=== PATIENT | female | born 1950 | race Caucasian/White ===

== ENCOUNTER 2017-05-25 15:54 | Inpatient (IN) | payer OTHER ==
[~2017-05-25] VITALS: Ht 172.7 cm; Wt 86.5 kg
[~2017-05-25 15:54] MED LIST: ATORVASTATIN CA20 MG PO; CORICIDIN HBP1 EAC5 PO; EVISTA60 MG PO; LOSARTAN POTAS100 MG PO; LOSARTAN-HCTZ1 EAC2 PO; MELOXICAM15 MG PO; MULTIVITAMIN1 EAC2 PO; TRAMADOL HCL50 MG PO; VOLTAREN75 MG PO
[2017-05-25 17:03] LABS: EOSINOPHIL (%) 0.5 % (0-5); IMMATURE GRANULOCYTE (%) 0.5 % (0.0-0.7); INSTRUMENT ABS NEUTROPHIL CT 6.3 K/uL; INTER. NORMALIZED RATIO 1.1; MCH 28.7 PG (29.0-34.0); MCHC 32.7 G/DL (30.0-36.0); MCV 87.8 FL (83-99); MONOCYTE (%) 8.8 % (3-12); MONOCYTE COUNT 0.7 K/uL (0-0.8); NEUTROPHIL (%) 77.1 % (45-76); NEUTROPHIL COUNT 6.3 K/uL (1.8-6.4); RBC DIS.WIDTH-CV 13.1 % (11.8-14.6); RED BLOOD COUNT 3.76 M/uL (3.80-5.20); WHITE BLOOD COUNT 8.1 K/uL (4.1-10.2)
[2017-05-25 17:04] LABS: CHLORIDE 112 mEq/L (99-109); POTASSIUM 3.7 mEq/L (3.7-5.4); SODIUM 144 mEq/L (136-147)
[2017-05-25 17:06] LABS: GLUCOSE 102 mg/dL (70-99)
[2017-05-25 17:07] LABS: ANION GAP 9 MEQ/L (2-14)
[2017-05-25 17:10] LABS: GFR ESTIMATE (CALCULATED) > 59 mL/min/; UREA NITROGEN (BUN) 17 mg/dL (9-23)
[2017-05-25 17:37] LABS: PTT 19.3 SEC (25-37)
[2017-05-25 17:45] LABS: PLAT.SUFFICIENCY ADEQUATE; PLATELET COUNT UNABLE TO REPORT K/uL (156-360)
[2017-05-25 17:48] LABS: HDL CHOLESTEROL 57 MG/DL (Desirable>=50); LDL CHOLESTEROL 78 mg/dL (Desirable<100); NON-HDL CHOLESTEROL 93 mg/dL (Desirable<160); TOTAL CHOLESTEROL 150 mg/dL (Desirable<200); TRIGLYCERIDES 76 MG/DL (Normal: <150)
[2017-05-25 19:28] LABS: Estimated Average Glucose 114 mg/dL (70-123); HEMOGLOBIN A1c (GLYCOHEMOGLOB) 5.6 % HGB (Below 5.7)
[2017-05-25 22:18] LABS: DIRECT BILIRUBIN 0.1 mg/dL (0.0-0.3); TOTAL BILIRUBIN 0.7 MG/DL (0.0-1.0)
[2017-05-25 22:36] LABS: ALKALINE PHOSPHATASE 68 IU/L (3-129)
[2017-05-25 22:43] VITALS: BP 168/82
[2017-05-26 04:14] VITALS: BP 144/82
[2017-05-26 06:11] LABS: HEMATOCRIT 34.2 % (36.0-46.0); MCH 28.8 PG (29.0-34.0); MEAN PLAT.VOLUME 11.2 uM^3 (9.5-12.4); PLATELET COUNT 230 K/uL (156-360); RBC DIS.WIDTH-CV 13.1 % (11.8-14.6); RBC DIS.WIDTH-SD 41.1 % (39-53); RED BLOOD COUNT 3.93 M/uL (3.80-5.20)
[2017-05-26 06:58] LABS: ANION GAP 8 MEQ/L (2-14); CHLORIDE 109 MEQ/L (99-109); GFR ESTIMATE (CALCULATED) > 59 mL/min/; GLUCOSE 127 mg/dL (70-99); POTASSIUM 4.1 MEQ/L (3.7-5.4); SAMPLE HEMOLYSIS CHECK 0; SAMPLE ICTERIC CHECK 0; SAMPLE LIPEMIA CHECK 0; SODIUM 142 MEQ/L (136-147); UREA NITROGEN (BUN) 15 mg/dL (9-23)
[2017-05-26 08:14] VITALS: BP 144/72
[2017-05-26 11:51] VITALS: BP 135/73
[2017-05-26 16:48] VITALS: BP 131/69
[2017-05-26 20:30] VITALS: BP 140/70
[2017-05-26 23:52] VITALS: BP 151/75
[2017-05-27 04:16] VITALS: BP 136/67
[2017-05-27 07:01] LABS: HEMATOCRIT 35.7 % (36.0-46.0); MCH 29.1 PG (29.0-34.0); MCHC 33.3 G/DL (30.0-36.0); MCV 87.3 FL (83-99); MEAN PLAT.VOLUME 10.9 uM^3 (9.5-12.4); PLATELET COUNT 235 K/uL (156-360); RBC DIS.WIDTH-CV 13.2 % (11.8-14.6); RBC DIS.WIDTH-SD 41.8 % (39-53); RED BLOOD COUNT 4.09 M/uL (3.80-5.20); WHITE BLOOD COUNT 10.3 K/uL (4.1-10.2)
[2017-05-27 07:35] LABS: ANION GAP 10 MEQ/L (2-14); CHLORIDE 104 MEQ/L (99-109); GFR ESTIMATE (CALCULATED) > 59 mL/min/; GLUCOSE 121 mg/dL (70-99); SAMPLE HEMOLYSIS CHECK 0; SAMPLE ICTERIC CHECK 0; SAMPLE LIPEMIA CHECK 0; SODIUM 139 MEQ/L (136-147); UREA NITROGEN (BUN) 22 mg/dL (9-23)
[2017-05-27 07:36] VITALS: BP 139/69
[2017-05-27 11:07] VITALS: BP 126/60
[2017-05-27 15:34] VITALS: BP 128/64
[2017-05-27 19:54] VITALS: BP 167/68
[2017-05-27 23:27] VITALS: BP 115/56
[2017-05-28 04:00] VITALS: BP 128/68
[2017-05-28 08:16] VITALS: BP 139/68
[2017-05-28 12:16] VITALS: BP 142/73
[2017-05-28 15:36] VITALS: BP 147/77
[2017-05-28 19:54] VITALS: BP 132/78; BP 174/79
[2017-05-28 23:23] VITALS: BP 148/69
[2017-05-29 04:00] VITALS: BP 132/78
[2017-05-29 08:01] VITALS: BP 144/67
[2017-05-29 12:10] VITALS: BP 143/68
[2017-05-29 16:35] VITALS: BP 181/79
[2017-05-29 19:33] VITALS: BP 147/83
[2017-05-29 23:19] VITALS: BP 138/77
[2017-05-30 23:25] VITALS: BP 142/64
[2017-05-31 08:08] VITALS: BP 107/66
[2017-05-31 15:42] VITALS: BP 128/78
[2017-05-31 23:24] VITALS: BP 147/72
[2017-06-01 08:21] VITALS: BP 162/79
[2017-06-01 15:24] VITALS: BP 137/62
[2017-06-01 20:11] VITALS: BP 134/69
[2017-06-02 00:08] VITALS: BP 140/65
[2017-06-02 06:15] LABS: EOSINOPHIL (%) 0 % (0-5); HEMATOCRIT 38.5 % (36.0-46.0); IMMATURE GRANULOCYTE (%) 1.8 % (0.0-0.7); IMMATURE GRANULOCYTE COUNT 0.2 K/uL; INSTRUMENT ABS NEUTROPHIL CT 9.1 K/uL; LYMPHOCYTE COUNT 1.1 K/uL (1.0-2.8); MCH 29.1 PG (29.0-34.0); MCHC 33.5 G/DL (30.0-36.0); MCV 86.7 FL (83-99); MEAN PLAT.VOLUME 10.8 uM^3 (9.5-12.4); MONOCYTE (%) 5.5 % (3-12); MONOCYTE COUNT 0.6 K/uL (0-0.8); NEUTROPHIL (%) 82.4 % (45-76); NEUTROPHIL COUNT 9.1 K/uL (1.8-6.4); PLATELET COUNT 178 K/uL (156-360); RBC DIS.WIDTH-CV 13.3 % (11.8-14.6); RBC DIS.WIDTH-SD 41.9 % (39-53); RED BLOOD COUNT 4.44 M/uL (3.80-5.20)
[2017-06-02 06:33] LABS: ANION GAP 8 MEQ/L (2-14); CHLORIDE 105 MEQ/L (99-109); GFR ESTIMATE (CALCULATED) > 59 mL/min/; GLUCOSE 109 mg/dL (70-99); POTASSIUM 4.4 MEQ/L (3.7-5.4); SAMPLE HEMOLYSIS CHECK 1; SAMPLE ICTERIC CHECK 0; SAMPLE LIPEMIA CHECK 0; SODIUM 140 MEQ/L (136-147); UREA NITROGEN (BUN) 25 mg/dL (9-23)
[2017-06-02 08:36] VITALS: BP 123/63
[2017-06-02 16:07] VITALS: BP 127/81
[2017-06-03 00:39] VITALS: BP 124/66
[2017-06-03 06:45] LABS: EOSINOPHIL (%) 0 % (0-5); HEMATOCRIT 38.6 % (36.0-46.0); IMMATURE GRANULOCYTE (%) 2.1 % (0.0-0.7); IMMATURE GRANULOCYTE COUNT 0.2 K/uL; INSTRUMENT ABS NEUTROPHIL CT 9.2 K/uL; LYMPHOCYTE COUNT 1.2 K/uL (1.0-2.8); MCH 28.5 PG (29.0-34.0); MCHC 32.9 G/DL (30.0-36.0); MCV 86.5 FL (83-99); MEAN PLAT.VOLUME 10.9 uM^3 (9.5-12.4); MONOCYTE (%) 6.3 % (3-12); MONOCYTE COUNT 0.7 K/uL (0-0.8); NEUTROPHIL (%) 80.8 % (45-76); NEUTROPHIL COUNT 9.2 K/uL (1.8-6.4); PLATELET COUNT 170 K/uL (156-360); RBC DIS.WIDTH-CV 13.2 % (11.8-14.6); RBC DIS.WIDTH-SD 41.6 % (39-53); RED BLOOD COUNT 4.46 M/uL (3.80-5.20); WHITE BLOOD COUNT 11.4 K/uL (4.1-10.2)
[2017-06-03 07:05] LABS: ANION GAP 8 MEQ/L (2-14); CHLORIDE 104 MEQ/L (99-109); GFR ESTIMATE (CALCULATED) > 59 mL/min/; GLUCOSE 101 mg/dL (70-99); POTASSIUM 4.5 MEQ/L (3.7-5.4); SAMPLE HEMOLYSIS CHECK 0; SAMPLE ICTERIC CHECK 0; SAMPLE LIPEMIA CHECK 0; SODIUM 139 MEQ/L (136-147); UREA NITROGEN (BUN) 24 mg/dL (9-23)
[2017-06-03 07:42] VITALS: BP 148/67
[2017-06-03 16:03] VITALS: BP 129/78
[2017-06-03 23:39] VITALS: BP 130/72
[2017-06-04 08:00] VITALS: BP 121/70; BP 121/73
[2017-06-04 14:58] VITALS: BP 109/62
[2017-06-04 23:22] VITALS: BP 134/72
[2017-06-05 04:37] VITALS: BP 133/79
[2017-06-05 07:02] LABS: EOSINOPHIL (%) 0 % (0-5); HEMATOCRIT 37.9 % (36.0-46.0); IMMATURE GRANULOCYTE (%) 2.8 % (0.0-0.7); IMMATURE GRANULOCYTE COUNT 0.3 K/uL; INSTRUMENT ABS NEUTROPHIL CT 8.9 K/uL; LYMPHOCYTE COUNT 1.2 K/uL (1.0-2.8); MCH 28.5 PG (29.0-34.0); MCHC 32.7 G/DL (30.0-36.0); MCV 87.1 FL (83-99); MEAN PLAT.VOLUME 11.1 uM^3 (9.5-12.4); MONOCYTE (%) 6.9 % (3-12); MONOCYTE COUNT 0.8 K/uL (0-0.8); NEUTROPHIL (%) 79.6 % (45-76); NEUTROPHIL COUNT 8.9 K/uL (1.8-6.4); PLATELET COUNT 145 K/uL (156-360); RBC DIS.WIDTH-CV 13.2 % (11.8-14.6); RBC DIS.WIDTH-SD 42.2 % (39-53); RED BLOOD COUNT 4.35 M/uL (3.80-5.20); WHITE BLOOD COUNT 11.2 K/uL (4.1-10.2)
[2017-06-05 07:23] VITALS: BP 126/61
[2017-06-05 07:26] LABS: ANION GAP 7 MEQ/L (2-14); CHLORIDE 106 MEQ/L (99-109); GFR ESTIMATE (CALCULATED) > 59 mL/min/; GLUCOSE 101 mg/dL (70-99); POTASSIUM 4.3 MEQ/L (3.7-5.4); SAMPLE HEMOLYSIS CHECK 0; SAMPLE ICTERIC CHECK 0; SAMPLE LIPEMIA CHECK 0; SODIUM 140 MEQ/L (136-147); UREA NITROGEN (BUN) 28 mg/dL (9-23)
[2017-06-05 15:20] VITALS: BP 108/66
[2017-06-06 00:13] VITALS: BP 105/56
[2017-06-06 06:02] LABS: EOSINOPHIL (%) 0.1 % (0-5); HEMATOCRIT 37.4 % (36.0-46.0); IMMATURE GRANULOCYTE COUNT 0.4 K/uL; INSTRUMENT ABS NEUTROPHIL CT 9.9 K/uL; LYMPHOCYTE COUNT 1.2 K/uL (1.0-2.8); MCH 29.3 PG (29.0-34.0); MCHC 32.9 G/DL (30.0-36.0); MONOCYTE (%) 6.8 % (3-12); MONOCYTE COUNT 0.8 K/uL (0-0.8); NEUTROPHIL (%) 80.2 % (45-76); NEUTROPHIL COUNT 9.9 K/uL (1.8-6.4); PLATELET COUNT 108 K/uL (156-360); RBC DIS.WIDTH-CV 13.6 % (11.8-14.6); RBC DIS.WIDTH-SD 44.1 % (39-53); WHITE BLOOD COUNT 12.3 K/uL (4.1-10.2)
[2017-06-06 06:29] LABS: ANION GAP 7 MEQ/L (2-14); CHLORIDE 105 MEQ/L (99-109); GFR ESTIMATE (CALCULATED) > 59 mL/min/; GLUCOSE 111 mg/dL (70-99); POTASSIUM 4.9 MEQ/L (3.7-5.4); SAMPLE HEMOLYSIS CHECK 2; SAMPLE ICTERIC CHECK 0; SAMPLE LIPEMIA CHECK 0; SODIUM 138 MEQ/L (136-147); UREA NITROGEN (BUN) 28 mg/dL (9-23)
[2017-06-06 08:14] VITALS: BP 131/63
[2017-06-06] MEDS ORDERED: GABAPENTIN100 MG PO (14:05)
[2017-06-06] MEDS ORDERED: ATORVASTATIN CA20 MG PO (14:05)
[2017-06-06] MEDS ORDERED: PANTOPRAZOLE SO40 MG PO (14:06)
[2017-06-06] MEDS ORDERED: DEXAMETHASONE4 MG PO (14:07)
[2017-06-06] MEDS ORDERED: ALPRAZOLAM0.25 M2 PO (14:09)
[2017-06-06] MEDS ORDERED: TRAMADOL HCL50 MG PO (14:09)
== END 2017-06-06 15:40 | DRG 987 ==
LOC: EME 15:54 → 3EAST 21:04 → EDOF 21:04 → ENRESERV 21:11 → 3EAST 22:15
PROVIDERS: Emergency Medicine; Hospitalist; Internal Medicine
PROC: D0Y07ZZ Contact Radiation of Brain (ICD-10-PCS; principal; 2017-05-29)
PROC: 0PB23ZX Excision of 3 or More Ribs, Percutaneous Approach, Diagnostic (ICD-10-PCS; 2017-05-29)
DX: C79.31 Secondary malignant neoplasm of brain (principal); C79.51 Secondary malignant neoplasm of bone; C78.01 Secondary malignant neoplasm of right lung; C80.1 Malignant (primary) neoplasm, unspecified; G93.6 Cerebral edema; R47.01 Aphasia; R41.82 Altered mental status, unspecified; R59.1 Generalized enlarged lymph nodes; D64.9 Anemia, unspecified; I10 Essential (primary) hypertension; E78.5 Hyperlipidemia, unspecified; K21.9 Gastro-esophageal reflux disease without esophagitis; Z87.891 Personal history of nicotine dependence; Z91.81 History of falling; Z23 Encounter for immunization
CPT/HCPCS: 70450; 70553; 71020; 71260; 74177; 77012; 77290; 77307; 77331; 77334; 77412; 77417; 80048; 80061; 80076; 83036; 84443; 84484; 85025; 85027; 85610; 85730; 88305; 88341 TC; 88342 TC; 90686; 93005; 93306; 93880; 94799; 97530 GP; 99281; 99284; G0378; J1100; J1170; J1644; J1650; J2060; J2270; J3010; J3480; J7030; J8540

== ENCOUNTER → 2017-06-27 | Outpatient (CLI) | payer OTHER ==
[~2017-06-27] MED LIST changes: +ALPRAZOLAM0.25 M2 PO; +DEXAMETHASONE4 MG PO; +GABAPENTIN100 MG PO; +PANTOPRAZOLE SO40 MG PO
[2017-06-27 11:06] LABS: PROTHROMBIN TIME 11.4 SEC (10.2-12.9)
[2017-06-27 11:09] LABS: PTT 23.1 SEC (25-37)
== END | disposition home or self-care (01) ==
LOC: OPR 09:55 → EDSTATUS 10:00
PROVIDERS: Internal Medicine Hematology & Oncology
PROC: 07BP3ZX Excision of Spleen, Percutaneous Approach, Diagnostic (ICD-10-PCS; principal; 2017-06-27)
DX: C78.89 Secondary malignant neoplasm of other digestive organs (principal); C79.31 Secondary malignant neoplasm of brain; C79.51 Secondary malignant neoplasm of bone; R91.1 Solitary pulmonary nodule; R91.8 Other nonspecific abnormal finding of lung field; Z80.3 Family history of malignant neoplasm of breast; Z87.891 Personal history of nicotine dependence; I10 Essential (primary) hypertension; E78.5 Hyperlipidemia, unspecified
CPT/HCPCS: 77012; 85610; 85730; 88307; 88341 TC; 88342 TC; J3010

== ENCOUNTER 2017-07-19 09:36 | Emergency (ER) | payer OTHER ==
[~2017-07-19] VITALS: Ht 172.7 cm; Wt 80.6 kg
[2017-07-19 11:23] LABS: HEMATOCRIT 31.3 % (36.0-46.0); HEMOGLOBIN 10.5 G/DL (11.9-15.5); MCH 29.1 PG (29.0-34.0); MCHC 33.5 G/DL (30.0-36.0); MCV 86.7 FL (83-99); PLATELET COUNT 235 K/uL (156-360); RBC DIS.WIDTH-CV 13.9 % (11.8-14.6); RED BLOOD COUNT 3.61 M/uL (3.80-5.20); WHITE BLOOD COUNT 6.5 K/uL (4.1-10.2)
[2017-07-19 11:33] LABS: CHLORIDE 103 mEq/L (99-109); POTASSIUM 3.3 mEq/L (3.7-5.4); SODIUM 140 mEq/L (136-147)
[2017-07-19 11:35] LABS: GLUCOSE 96 mg/dL (70-99)
[2017-07-19 11:39] LABS: GFR ESTIMATE (CALCULATED) 59 mL/min/
[2017-07-19 11:40] LABS: UREA NITROGEN (BUN) 12 mg/dL (9-23)
[2017-07-19 12:16] LABS: APPEARANCE CLEAR ((CLEAR)); BILIRUBIN NEGATIVE; BLOOD SMALL; COLOR YELLOW ((YELLOW)); GLUCOSE (STRIP) NEGATIVE; KETONES 20; LEUKOCYTES NEGATIVE; NITRITE POSITIVE; PROTEIN (STRIP) NEGATIVE; SPECIFIC GRAVITY 1.009 (1.000-1.030)
[2017-07-19 12:26] LABS: BACTERIA RARE /HPF; EPITHELIAL CELLS 1+ /HPF; MUCUS TRACE /LPF; RED BLOOD CELLS 0-5 /HPF (0-5); WHITE BLOOD CELLS 0-5 /HPF (0-5)
[2017-07-19] MEDS ORDERED: PHENERGAN25 MG PR (13:14)
[2017-07-19] MEDS ORDERED: PROMETHAZINE HC25 M1 PO (14:05)
[2017-07-19 14:15] VITALS: BP 145/68
[2017-07-20] MEDS ORDERED: PROMETHAZINE HC25 M1 PO (21:46)
== END 2017-07-19 14:21 | disposition home or self-care (01) ==
LOC: EME 09:36
PROVIDERS: Physician Assistant
DX: B34.9 Viral infection, unspecified (principal); R11.2 Nausea with vomiting, unspecified; S29.011A Strain of muscle and tendon of front wall of thorax, initial encounter; E78.5 Hyperlipidemia, unspecified; I10 Essential (primary) hypertension; Z87.891 Personal history of nicotine dependence; Z92.3 Personal history of irradiation; Z85.841 Personal history of malignant neoplasm of brain; Z88.5 Allergy status to narcotic agent
CPT/HCPCS: 71046; 80048; 81003; 85027; 87077; 87086; 87186; 99281; 99285; J2405; J7030

== ENCOUNTER 2017-07-20 19:02 | Inpatient (IN) | payer OTHER ==
[~2017-07-20] VITALS: Ht 172.7 cm; Wt 80.4 kg
[~2017-07-20 19:02] MED LIST changes: +PHENERGAN25 MG PR; +PROMETHAZINE HC25 M1 PO
[2017-07-20 20:07] LABS: BASOPHIL (%) 0.7 % (0-1); BASOPHIL COUNT 0.1 K/uL (0-0.1); EOSINOPHIL (%) 1.1 % (0-5); EOSINOPHIL COUNT 0.1 K/uL (0-0.3); HEMATOCRIT 32.8 % (36.0-46.0); HEMOGLOBIN 10.8 G/DL (11.9-15.5); IMMATURE GRANULOCYTE (%) 1.7 % (0.0-0.7); LYMPHOCYTE (%) 11.5 % (15-42); LYMPHOCYTE COUNT 0.9 K/uL (1.0-2.8); MCH 28.9 PG (29.0-34.0); MCHC 32.9 G/DL (30.0-36.0); MCV 87.7 FL (83-99); MONOCYTE (%) 10.5 % (3-12); MONOCYTE COUNT 0.9 K/uL (0-0.8); NEUTROPHIL (%) 74.5 % (45-76); NEUTROPHIL COUNT 6.1 K/uL (1.8-6.4); PLATELET COUNT 220 K/uL (156-360); RBC DIS.WIDTH-CV 14.3 % (11.8-14.6); RBC DIS.WIDTH-SD 45.9 % (39-53); RED BLOOD COUNT 3.74 M/uL (3.80-5.20); WHITE BLOOD COUNT 8.2 K/uL (4.1-10.2)
[2017-07-20 20:24] LABS: CHLORIDE 104 mEq/L (99-109); POTASSIUM 3.6 mEq/L (3.7-5.4); SODIUM 138 mEq/L (136-147)
[2017-07-20 20:25] LABS: GLUCOSE 108 mg/dL (70-99)
[2017-07-20 20:29] LABS: CREATININE 1.2 mg/dL (0.6-1.3); GFR ESTIMATE (CALCULATED) 47 mL/min/
[2017-07-20 20:30] LABS: UREA NITROGEN (BUN) 14 mg/dL (9-23)
[2017-07-20] MEDS ORDERED: PROMETHAZINE HC25 M1 PO (21:46)
[2017-07-21 01:06] VITALS: BP 133/61
[2017-07-21 05:20] LABS: HEMATOCRIT 29.1 % (36.0-46.0); HEMOGLOBIN 9.5 G/DL (11.9-15.5); MCHC 32.6 G/DL (30.0-36.0); MCV 88.7 FL (83-99); PLATELET COUNT 217 K/uL (156-360); RBC DIS.WIDTH-CV 14.3 % (11.8-14.6); RED BLOOD COUNT 3.28 M/uL (3.80-5.20); WHITE BLOOD COUNT 6.3 K/uL (4.1-10.2)
[2017-07-21 05:43] LABS: CHLORIDE 109 MEQ/L (99-109); GFR ESTIMATE (CALCULATED) 59 mL/min/; GLUCOSE 92 mg/dL (70-99); POTASSIUM 3.3 MEQ/L (3.7-5.4); SODIUM 141 MEQ/L (136-147); UREA NITROGEN (BUN) 11 mg/dL (9-23)
[2017-07-21 07:46] VITALS: BP 153/65
[2017-07-21 11:39] VITALS: BP 126/60
[2017-07-21 15:29] VITALS: BP 154/84
[2017-07-21 20:21] VITALS: BP 136/68
[2017-07-22 00:13] VITALS: BP 147/88
[2017-07-22 04:02] VITALS: BP 145/80
[2017-07-22 06:10] LABS: HEMATOCRIT 30.8 % (36.0-46.0); HEMOGLOBIN 9.9 G/DL (11.9-15.5); RED BLOOD COUNT 3.44 M/uL (3.80-5.20); WHITE BLOOD COUNT 8.5 K/uL (4.1-10.2)
[2017-07-22 06:11] LABS: BASOPHIL (%) 0.7 % (0-1); BASOPHIL COUNT 0.1 K/uL (0-0.1); EOSINOPHIL (%) 1.1 % (0-5); EOSINOPHIL COUNT 0.1 K/uL (0-0.3); IMMATURE GRANULOCYTE (%) 1.1 % (0.0-0.7); LYMPHOCYTE (%) 7.5 % (15-42); LYMPHOCYTE COUNT 0.6 K/uL (1.0-2.8); MCH 28.8 PG (29.0-34.0); MCHC 32.1 G/DL (30.0-36.0); MCV 89.5 FL (83-99); MONOCYTE (%) 9.2 % (3-12); MONOCYTE COUNT 0.8 K/uL (0-0.8); NEUTROPHIL (%) 80.4 % (45-76); NEUTROPHIL COUNT 6.8 K/uL (1.8-6.4); PLATELET COUNT 235 K/uL (156-360); RBC DIS.WIDTH-CV 14.4 % (11.8-14.6)
[2017-07-22 06:42] LABS: CHLORIDE 109 MEQ/L (99-109); GLUCOSE 96 mg/dL (70-99); SODIUM 143 MEQ/L (136-147); UREA NITROGEN (BUN) 11 mg/dL (9-23)
[2017-07-22 06:48] LABS: CREATININE 1.6 MG/DL (0.6-1.3); GFR ESTIMATE (CALCULATED) 34 mL/min/; POTASSIUM 4.1 MEQ/L (3.7-5.4)
[2017-07-22 08:00] VITALS: BP 145/73
[2017-07-22 11:19] VITALS: BP 151/73
[2017-07-23 00:20] VITALS: BP 136/79
[2017-07-23 06:59] LABS: HEMATOCRIT 27.8 % (36.0-46.0); HEMOGLOBIN 8.8 G/DL (11.9-15.5); MCH 29.2 PG (29.0-34.0); MCHC 31.7 G/DL (30.0-36.0); MCV 92.4 FL (83-99); PLATELET COUNT 220 K/uL (156-360); RBC DIS.WIDTH-CV 14.6 % (11.8-14.6); RBC DIS.WIDTH-SD 48.8 % (39-53); RED BLOOD COUNT 3.01 M/uL (3.80-5.20); WHITE BLOOD COUNT 6.1 K/uL (4.1-10.2)
[2017-07-23 07:06] LABS: BASOPHIL (%) 0.8 % (0-1); BASOPHIL COUNT 0.1 K/uL (0-0.1); EOSINOPHIL (%) 2.1 % (0-5); EOSINOPHIL COUNT 0.1 K/uL (0-0.3); IMMATURE GRANULOCYTE (%) 1.1 % (0.0-0.7); LYMPHOCYTE (%) 10.7 % (15-42); LYMPHOCYTE COUNT 0.7 K/uL (1.0-2.8); MONOCYTE COUNT 0.6 K/uL (0-0.8); NEUTROPHIL (%) 75.3 % (45-76); NEUTROPHIL COUNT 4.6 K/uL (1.8-6.4)
[2017-07-23 07:35] VITALS: BP 149/87
[2017-07-23 09:59] LABS: CHLORIDE 112 MEQ/L (99-109); GFR ESTIMATE (CALCULATED) 26 mL/min/; GLUCOSE 86 mg/dL (70-99); POTASSIUM 3.7 MEQ/L (3.7-5.4); SODIUM 144 MEQ/L (136-147); UREA NITROGEN (BUN) 13 mg/dL (9-23)
[2017-07-23 21:51] LABS: UR CREATININE CONCENTRATION 131.6 MG/DL
[2017-07-23 23:29] VITALS: BP 140/75
[2017-07-24 08:01] LABS: BASOPHIL (%) 0.7 % (0-1); BASOPHIL COUNT 0.1 K/uL (0-0.1); EOSINOPHIL (%) 2.9 % (0-5); EOSINOPHIL COUNT 0.2 K/uL (0-0.3); HEMOGLOBIN 9.7 G/DL (11.9-15.5); IMMATURE GRANULOCYTE (%) 1.1 % (0.0-0.7); LYMPHOCYTE COUNT 1.1 K/uL (1.0-2.8); MCH 28.2 PG (29.0-34.0); MCHC 31.3 G/DL (30.0-36.0); MCV 90.1 FL (83-99); MONOCYTE (%) 9.8 % (3-12); MONOCYTE COUNT 0.8 K/uL (0-0.8); NEUTROPHIL (%) 72.5 % (45-76); NEUTROPHIL COUNT 5.9 K/uL (1.8-6.4); PLATELET COUNT 219 K/uL (156-360); RBC DIS.WIDTH-CV 14.5 % (11.8-14.6); RBC DIS.WIDTH-SD 47.8 % (39-53); RED BLOOD COUNT 3.44 M/uL (3.80-5.20); WHITE BLOOD COUNT 8.2 K/uL (4.1-10.2)
[2017-07-24 08:15] VITALS: BP 158/85
[2017-07-24 08:34] LABS: ALBUMIN 2.9 G/DL (3.2-4.8); CHLORIDE 115 MEQ/L (99-109); SODIUM 142 MEQ/L (136-147)
[2017-07-24 08:40] LABS: CREATININE 1.9 MG/DL (0.6-1.3); GFR ESTIMATE (CALCULATED) 28 mL/min/; GLUCOSE 95 mg/dL (70-99); PHOSPHORUS 3.4 mg/dL (2.5-4.9); UREA NITROGEN (BUN) 14 mg/dL (9-23); URIC ACID 3.5 mg/dL (3.1-9.2)
[2017-07-24 10:07] LABS: TROP-I INTERPRETATION NEGATIVE; TROPONIN-I 0.01 ng/mL (0.0-0.30)
[2017-07-24 15:25] VITALS: BP 131/83
[2017-07-24 23:59] VITALS: BP 140/69
[2017-07-25 07:34] VITALS: BP 138/72
[2017-07-25 08:49] LABS: BASOPHIL (%) 0.6 % (0-1); BASOPHIL COUNT 0.1 K/uL (0-0.1); EOSINOPHIL (%) 2.6 % (0-5); EOSINOPHIL COUNT 0.2 K/uL (0-0.3); HEMATOCRIT 29.9 % (36.0-46.0); HEMOGLOBIN 9.5 G/DL (11.9-15.5); IMMATURE GRANULOCYTE (%) 1.5 % (0.0-0.7); LYMPHOCYTE (%) 7.2 % (15-42); LYMPHOCYTE COUNT 0.6 K/uL (1.0-2.8); MCH 28.1 PG (29.0-34.0); MCHC 31.8 G/DL (30.0-36.0); MCV 88.5 FL (83-99); MONOCYTE (%) 3.6 % (3-12); MONOCYTE COUNT 0.3 K/uL (0-0.8); NEUTROPHIL (%) 84.5 % (45-76); NEUTROPHIL COUNT 7.5 K/uL (1.8-6.4); PLATELET COUNT 258 K/uL (156-360); RBC DIS.WIDTH-CV 14.3 % (11.8-14.6); RBC DIS.WIDTH-SD 45.6 % (39-53); RED BLOOD COUNT 3.38 M/uL (3.80-5.20); WHITE BLOOD COUNT 8.9 K/uL (4.1-10.2)
[2017-07-25 09:00] LABS: INTER. NORMALIZED RATIO 1.3
[2017-07-25 09:03] LABS: PTT 67.7 SEC (25-37)
[2017-07-25 09:13] LABS: ALBUMIN 3.3 g/dL (3.2-4.8)
[2017-07-25 09:14] LABS: CHLORIDE 117 mEq/L (99-109); POTASSIUM 4.2 mEq/L (3.7-5.4); SODIUM 142 mEq/L (136-147)
[2017-07-25 09:15] LABS: GLUCOSE 116 mg/dL (70-99)
[2017-07-25 09:19] LABS: CREATININE 1.8 mg/dL (0.6-1.3); GFR ESTIMATE (CALCULATED) 30 mL/min/
[2017-07-25 09:20] LABS: UREA NITROGEN (BUN) 13 mg/dL (9-23)
[2017-07-25 10:14] LABS: PHOSPHORUS 2.8 mg/dL (2.5-4.9)
[2017-07-25 16:07] VITALS: BP 129/67
[2017-07-25 19:22] VITALS: BP 156/71
[2017-07-26 04:00] VITALS: BP 156/75
[2017-07-26 06:58] VITALS: BP 114/73
[2017-07-26 11:27] VITALS: BP 144/80
[2017-07-26 13:06] LABS: BASOPHIL (%) 0.2 % (0-1); EOSINOPHIL (%) 0 % (0-5); HEMATOCRIT 28.2 % (36.0-46.0); IMMATURE GRANULOCYTE (%) 4.8 % (0.0-0.7); LYMPHOCYTE (%) 5.4 % (15-42); LYMPHOCYTE COUNT 0.5 K/uL (1.0-2.8); MCH 28.1 PG (29.0-34.0); MCHC 31.9 G/DL (30.0-36.0); MCV 88.1 FL (83-99); MONOCYTE COUNT 0.4 K/uL (0-0.8); NEUTROPHIL (%) 85.6 % (45-76); NEUTROPHIL COUNT 8.5 K/uL (1.8-6.4); PLATELET COUNT 278 K/uL (156-360); RBC DIS.WIDTH-CV 14.6 % (11.8-14.6); RBC DIS.WIDTH-SD 46.5 % (39-53); WHITE BLOOD COUNT 9.9 K/uL (4.1-10.2)
[2017-07-26 13:27] LABS: ALBUMIN 3.2 G/DL (3.2-4.8); CHLORIDE 112 MEQ/L (99-109); CREATININE 1.8 MG/DL (0.6-1.3); GFR ESTIMATE (CALCULATED) 30 mL/min/; GLUCOSE 128 mg/dL (70-99); PHOSPHORUS 3.2 mg/dL (2.5-4.9); POTASSIUM 3.4 MEQ/L (3.7-5.4); SODIUM 143 MEQ/L (136-147); UREA NITROGEN (BUN) 16 mg/dL (9-23)
[2017-07-26 16:24] LABS: TYPE OF FLUID PLEURAL
[2017-07-26 16:39] LABS: APPEARANCE CLEAR-YELLOW; BODY FLUID RBC'S 1000 /MM^3 (0-100); BODY FLUID WBC'S 325 /MM^3 (0-500)
[2017-07-26 17:40] LABS: BODY FLUID GLUCOSE 135 MG/DL; BODY FLUID LDH 333 IU/L; BODY FLUID PROTEIN < 3.0 G/DL
[2017-07-26 18:15] LABS: BODY FLUID EOSINOPHILS 0 % (0-25); MONONUCLEAR WBC'S 99 %; POLYNUCLEAR WBC'S 1 % (0-25)
[2017-07-26 19:13] LABS: INTER. NORMALIZED RATIO 1.4
[2017-07-27 00:14] VITALS: BP 138/79
[2017-07-27 07:14] LABS: BASOPHIL (%) 0 % (0-1); EOSINOPHIL (%) 0 % (0-5); HEMATOCRIT 26.8 % (36.0-46.0); HEMOGLOBIN 8.6 G/DL (11.9-15.5); IMMATURE GRANULOCYTE (%) 1.6 % (0.0-0.7); LYMPHOCYTE COUNT 0.4 K/uL (1.0-2.8); MCHC 32.1 G/DL (30.0-36.0); MCV 87.3 FL (83-99); MONOCYTE (%) 3.5 % (3-12); MONOCYTE COUNT 0.3 K/uL (0-0.8); NEUTROPHIL (%) 89.9 % (45-76); NEUTROPHIL COUNT 6.7 K/uL (1.8-6.4); PLATELET COUNT 230 K/uL (156-360); RBC DIS.WIDTH-CV 14.5 % (11.8-14.6); RBC DIS.WIDTH-SD 45.7 % (39-53); RED BLOOD COUNT 3.07 M/uL (3.80-5.20); WHITE BLOOD COUNT 7.5 K/uL (4.1-10.2)
[2017-07-27 07:42] LABS: CHLORIDE 114 MEQ/L (99-109); CREATININE 1.7 MG/DL (0.6-1.3); GFR ESTIMATE (CALCULATED) 32 mL/min/; GLUCOSE 137 mg/dL (70-99); PHOSPHORUS 3.7 mg/dL (2.5-4.9); POTASSIUM 3.9 MEQ/L (3.7-5.4); SODIUM 146 MEQ/L (136-147); UREA NITROGEN (BUN) 20 mg/dL (9-23)
[2017-07-27 08:04] VITALS: BP 172/75
[2017-07-27 12:00] VITALS: BP 154/71
[2017-07-27 15:41] VITALS: BP 146/69
[2017-07-27 19:34] VITALS: BP 138/64
[2017-07-27 23:52] VITALS: BP 169/78
[2017-07-28 03:23] VITALS: BP 172/79
[2017-07-28 06:57] LABS: CHLORIDE 116 MEQ/L (99-109); CREATININE 1.4 MG/DL (0.6-1.3); GFR ESTIMATE (CALCULATED) 40 mL/min/; GLUCOSE 115 mg/dL (70-99); PHOSPHORUS 2.8 mg/dL (2.5-4.9); POTASSIUM 3.8 MEQ/L (3.7-5.4); SODIUM 145 MEQ/L (136-147); UREA NITROGEN (BUN) 22 mg/dL (9-23)
[2017-07-28 08:49] VITALS: BP 173/76
[2017-07-28 09:23] VITALS: BP 190/86
[2017-07-28 11:10] VITALS: BP 163/78
[2017-07-28 14:13] LABS: LACTATE DEHYDROGENASE 569 IU/L (20-246); TOTAL PROTEIN 5.2 G/DL (6.4-8.3)
[2017-07-28 15:33] VITALS: BP 169/74
[2017-07-28 20:27] VITALS: BP 156/72
[2017-07-29 05:29] VITALS: BP 156/72
[2017-07-29 06:20] LABS: HEMATOCRIT 28.9 % (36.0-46.0); HEMOGLOBIN 9.5 G/DL (11.9-15.5); MCH 27.9 PG (29.0-34.0); MCHC 32.9 G/DL (30.0-36.0); RBC DIS.WIDTH-CV 14.3 % (11.8-14.6); RBC DIS.WIDTH-SD 43.9 % (39-53); WHITE BLOOD COUNT 4.8 K/uL (4.1-10.2)
[2017-07-29 06:32] LABS: ALBUMIN 3.4 G/DL (3.2-4.8); CHLORIDE 108 MEQ/L (99-109); CREATININE 1.4 MG/DL (0.6-1.3); GFR ESTIMATE (CALCULATED) 40 mL/min/; GLUCOSE 125 mg/dL (70-99); PHOSPHORUS 2.7 mg/dL (2.5-4.9); POTASSIUM 3.2 MEQ/L (3.7-5.4); SODIUM 145 MEQ/L (136-147); UREA NITROGEN (BUN) 24 mg/dL (9-23)
[2017-07-29 06:44] LABS: PLAT.SUFFICIENCY DECREASED
[2017-07-29 06:46] LABS: PLATELET COUNT 150 K/uL (156-360)
[2017-07-29 08:18] VITALS: BP 172/75
[2017-07-30 06:34] LABS: ALBUMIN 3.4 G/DL (3.2-4.8); CHLORIDE 107 MEQ/L (99-109); CREATININE 1.4 MG/DL (0.6-1.3); GFR ESTIMATE (CALCULATED) 40 mL/min/; GLUCOSE 106 mg/dL (70-99); PHOSPHORUS 2.5 mg/dL (2.5-4.9); POTASSIUM 3.7 MEQ/L (3.7-5.4); SODIUM 143 MEQ/L (136-147); UREA NITROGEN (BUN) 22 mg/dL (9-23)
[2017-07-30 07:38] VITALS: BP 152/70
[2017-07-30 15:47] VITALS: BP 128/64
[2017-07-31 08:49] VITALS: BP 123/62
[2017-07-31 17:18] VITALS: BP 164/80
[2017-07-31 19:14] VITALS: BP 136/86
[2017-07-31 22:47] VITALS: BP 167/78; BP 186/86
[2017-08-01 06:42] LABS: HEMATOCRIT 27.7 % (36.0-46.0); HEMOGLOBIN 9.3 G/DL (11.9-15.5); MCH 28.6 PG (29.0-34.0); MCHC 33.6 G/DL (30.0-36.0); MCV 85.2 FL (83-99); RBC DIS.WIDTH-CV 13.8 % (11.8-14.6); RBC DIS.WIDTH-SD 42.5 % (39-53); RED BLOOD COUNT 3.25 M/uL (3.80-5.20)
[2017-08-01 06:52] LABS: CHLORIDE 105 MEQ/L (99-109); CREATININE 1.1 MG/DL (0.6-1.3); GFR ESTIMATE (CALCULATED) 52 mL/min/; GLUCOSE 121 mg/dL (70-99); POTASSIUM 3.4 MEQ/L (3.7-5.4); SODIUM 142 MEQ/L (136-147); UREA NITROGEN (BUN) 25 mg/dL (9-23)
[2017-08-01 07:04] LABS: PLAT.SUFFICIENCY DECREASED
[2017-08-01 07:05] LABS: PLATELET COUNT 64 K/uL (156-360)
[2017-08-01 08:31] VITALS: BP 163/80
[2017-08-01 15:00] VITALS: BP 148/82
[2017-08-01 23:33] VITALS: BP 152/81
[2017-08-01 23:53] VITALS: BP 119/63
[2017-08-02 06:34] LABS: HEMATOCRIT 30.6 % (36.0-46.0); HEMOGLOBIN 10.2 G/DL (11.9-15.5); MCHC 33.3 G/DL (30.0-36.0); MCV 84.1 FL (83-99); RBC DIS.WIDTH-CV 13.5 % (11.8-14.6); RBC DIS.WIDTH-SD 41.8 % (39-53); RED BLOOD COUNT 3.64 M/uL (3.80-5.20)
[2017-08-02 06:35] LABS: WHITE BLOOD COUNT 0.8 K/uL (4.1-10.2)
[2017-08-02 06:52] LABS: CHLORIDE 104 MEQ/L (99-109); CREATININE 1.1 MG/DL (0.6-1.3); GFR ESTIMATE (CALCULATED) 52 mL/min/; GLUCOSE 117 mg/dL (70-99); POTASSIUM 3.8 MEQ/L (3.7-5.4); SODIUM 140 MEQ/L (136-147); UREA NITROGEN (BUN) 25 mg/dL (9-23)
[2017-08-02 07:09] LABS: ABS NEUTROPHIL COUNT 0.4; ANISOCYTOSIS 2+; ATYPICAL LYMPHOCYTE 13.9 %; BAND NEUTROPHILS 2.8 % (0-8.0); BURR CELLS 1+; EOSINOPHIL ABS CT 0; GIANT PLATELETS 2+; HYPOCHROMASIA 1+; LYMPHOCYTES 33.5 % (15.0-45.0); MICROCYTOSIS 2+; MONOCYTES 2.8 % (0-9.0); NUCLEATED RBC'S 0.5; OVALOCYTES 1+; PLAT.SUFFICIENCY DECREASED; PLATELET COUNT 64 K/uL (156-360); POIKILOCYTOSIS 2+
[2017-08-02 08:24] VITALS: BP 190/86
[2017-08-02 17:06] VITALS: BP 152/74
[2017-08-02 23:57] VITALS: BP 158/83
[2017-08-03 06:24] LABS: CHLORIDE 104 MEQ/L (99-109); GFR ESTIMATE (CALCULATED) 59 mL/min/; GLUCOSE 116 mg/dL (70-99); HEMATOCRIT 26.7 % (36.0-46.0); HEMOGLOBIN 9.1 G/DL (11.9-15.5); MCH 28.4 PG (29.0-34.0); MCHC 34.1 G/DL (30.0-36.0); MCV 83.4 FL (83-99); POTASSIUM 3.4 MEQ/L (3.7-5.4); RBC DIS.WIDTH-CV 13.7 % (11.8-14.6); RBC DIS.WIDTH-SD 41.9 % (39-53); SODIUM 138 MEQ/L (136-147); UREA NITROGEN (BUN) 23 mg/dL (9-23)
[2017-08-03 06:25] LABS: WHITE BLOOD COUNT 0.6 K/uL (4.1-10.2)
[2017-08-03 06:59] LABS: PLATELET COUNT 69 K/uL (156-360)
[2017-08-03 07:44] VITALS: BP 165/71
[2017-08-03 16:09] VITALS: BP 152/72
[2017-08-03 23:24] VITALS: BP 140/77
[2017-08-05 07:29] VITALS: BP 164/79
[2017-08-05 17:34] VITALS: BP 145/82
[2017-08-06 00:23] VITALS: BP 147/70
[2017-08-06 07:34] VITALS: BP 164/76
[2017-08-06 16:41] VITALS: BP 117/60
[2017-08-07 04:11] VITALS: BP 128/73
[2017-08-07 07:29] VITALS: BP 122/75
[2017-08-07] MEDS ORDERED: DRONABINOL2.5 MG PO (08:38)
[2017-08-07] MEDS ORDERED: DEXAMETHASONE4 MG PO (08:38)
[2017-08-07] MEDS ORDERED: ATIVAN INTE2 MG/1 ML PO (08:42)
[2017-08-07] MEDS ORDERED: HYOSCYAMINE0.125 M1 SL (08:42)
[2017-08-07] MEDS ORDERED: MORPHINE CON20 MG/M1 PO (08:42)
[2017-08-07] MEDS ORDERED: ZOFRAN4 MG PO (08:42)
[2017-08-07] MEDS ORDERED: TRAMADOL HCL50 MG PO (11:22)
[2017-08-07 15:21] VITALS: BP 122/76
== END 2017-08-07 15:53 | disposition hospice, home (50) | DRG 166 ==
LOC: EME → EDBD 19:02 → EME 19:02 → 5EAST 21:50 → 5SOUTH 21:50 → EDOF 21:50 → ENRESERV 21:57 → EDOF 07-21 00:50 → 5SOUTH 07-21 00:50 → ENRESERV 07-24 17:47 → 5EAST 07-25 18:45
PROVIDERS: Emergency Medicine; Hospitalist; Internal Medicine; Internal Medicine Nephrology; Radiology Diagnostic Radiology
DX: J18.9 Pneumonia, unspecified organism (principal); N17.9 Acute kidney failure, unspecified; I26.99 Other pulmonary embolism without acute cor pulmonale; I82.433 Acute embolism and thrombosis of popliteal vein, bilateral; I82.412 Acute embolism and thrombosis of left femoral vein; I82.4Z3 Acute embolism and thrombosis of unspecified deep veins of distal lower extremity, bilateral; J90 Pleural effusion, not elsewhere classified; S32.591A Other specified fracture of right pubis, initial encounter for closed fracture; W19.XXXA Unspecified fall, initial encounter; C34.10 Malignant neoplasm of upper lobe, unspecified bronchus or lung; C78.89 Secondary malignant neoplasm of other digestive organs; C79.31 Secondary malignant neoplasm of brain; C79.51 Secondary malignant neoplasm of bone; C78.7 Secondary malignant neoplasm of liver and intrahepatic bile duct; I27.20 Pulmonary hypertension, unspecified; I08.1 Rheumatic disorders of both mitral and tricuspid valves; E87.6 Hypokalemia; E86.0 Dehydration; R62.7 Adult failure to thrive; E78.5 Hyperlipidemia, unspecified; I10 Essential (primary) hypertension; F41.9 Anxiety disorder, unspecified; K21.9 Gastro-esophageal reflux disease without esophagitis; M19.90 Unspecified osteoarthritis, unspecified site; R41.0 Disorientation, unspecified; D72.819 Decreased white blood cell count, unspecified; T45.1X5A Adverse effect of antineoplastic and immunosuppressive drugs, initial encounter; Y95 Nosocomial condition; Z51.5 Encounter for palliative care; Y92.230 Patient room in hospital as the place of occurrence of the external cause; Z75.1 Person awaiting admission to adequate facility elsewhere; Z87.891 Personal history of nicotine dependence; Z92.3 Personal history of irradiation
CPT/HCPCS: 70450; 70553; 71046; 71250; 72100; 73502; 76770; 76942; 78582; 80048; 80048 91; 80069; 80202; 81003; 82436; 82570; 82945; 83615; 83615 91; 83880; 84133; 84155; 84156; 84157; 84300; 84484; 84550; 85025; 85027; 85610; 85730; 87040; 87070; 87075; 87077; 87086; 87186; 87205; 88108; 88305; 88342 TC; 89051; 93306; 93970; 94010; 94640; 94640 76; 94799; 97530 GP; 99202; 99281; 99285; A9539; A9540; C1769; C1894; J0360; J0692; J1100; J1170; J1447; J1644; J1650; J1940; J2060; J2250; J2270; J2405; J2469; J2543; J2765; J2930; J3010; J3370; J3480; J7030; J7050; J7060; J7512; J8540; J9045; J9267; Q0167; S0028